=== PATIENT | male | born 1975 | race Two or more races ===

== ENCOUNTER 2020-05-28 09:46 | Emergency (ER) | payer OTHER ==
[2020-05-28 12:32] LABS: BLOOD UREA NITROGEN 14 mg/dL (7-20); CALCIUM 9.4 mg/dL (8.4-10.2); CARBON DIOXIDE 33 mmol/L (22-30); CHLORIDE 105 mmol/L (98-107); GLUCOSE 92 mg/dL (75-110); POTASSIUM 4.4 mmol/L (3.6-5.0)
[2020-05-28 12:38] LABS: ANION GAP 2 (5-19)
--- NOTE | 2020-05-28 13:24 | RADIOLOGY REPORT (SQ) ---
EXAM DESCRIPTION: MRI CERVICAL SPINE COMBO IMAGES COMPLETED DATE/TIME: 05/28/2020 1:02 pm REASON FOR STUDY: right arm weakness COMPARISON: None. TECHNIQUE: Sagittal and Axial imaging includes T1, T2, STIR and gradient echo sequences. T1 post phil olinium sequences. CONTRAST TYPE AND DOSE: 15 mL Prohance. RENAL FUNCTION: Not indicated. ACR Type II contrast agent associated with few, if any, unconfounded cases of NSF LIMITATIONS: None. FINDINGS: ALIGNMENT: Straightening of the lordotic curve. VERTEBRAE: Intact. BONE MARROW: Normal. No marrow replacement or reactive changes. DISCS: Desiccation multiple levels. HARDWARE: None in the spine. CORD AND BASE OF BRAIN: Subtle fusiform increased T2 signal in the cord at the level of C6-7. SOFT TISSUES: No soft tissue masses. C1-C2: No significant spinal stenosis. C2-C3: No significant stenosis. C3-C4: Mild spinal stenosis due to disc bulge and uncovertebral arthropathy. Moderate neural foramin al narrowing bilaterally. C4-C5: Mild spinal stenosis. Moderate neural foraminal narrowing bilaterally. C5-C6: Central small disc herniation. Mild-moderate spinal stenosis. Moderate neural foraminal narr owing bilaterally. C6-C7: Moderate size central disc herniation. Moderate spinal stenosis. Moderate neural foraminal n arrowing bilaterally. C7-T1: Large right lateral disc herniation contacting the lateral margin of the cord and the exiting C7 nerve root in the neural foramen. UPPER THORACIC: Incompletely imaged. No significant spinal stenosis or exit foraminal stenosis. ENHANCEMENT: No abnormal enhancement. OTHER: No other significant finding. IMPRESSION: 1. Varying degrees of spinal stenosis as described above. 2. Large right lateral disc herniation at C7-T1 contacting the lateral margin of the cord and the exi ting C7 nerve root. 3. Small syrinx C6-7. COMMENT: None. TECHNICAL DOCUMENTATION: JOB ID: [id number] 2010 [employer]- All Rights Reserved Reading location - IP/workstation name: [email or web address]
[2020-05-28 13:56] LABS: ABSOLUTE EOSINOPHILS # (AUTO) 0.1 10^3/uL (0.0-0.6); ABSOLUTE LYMPHOCYTES (AUTO) 1.5 10^3/uL (0.5-4.7); ABSOLUTE MONOCYTES (AUTO) 0.3 10^3/uL (0.1-1.4); ABSOLUTE NEUT (AUTO) 2.6 10^3/uL (1.7-8.2); BASOPHILS % (AUTO) 0.4 % (0-2); EOSINOPHILS % (AUTO) 1.5 % (0-6); HEMATOCRIT 43.3 % (37.9-51.0); LYMPHOCYTES % (AUTO) 33.9 % (13-45); MEAN CORPUSCULAR HEMOGLOBIN 30.6 pg (27.0-33.4); MEAN CORPUSCULAR HGB CONC 34.7 g/dL (32.0-36.0); MEAN CORPUSCULAR VOLUME 88 fl (80-97); MONOCYTES % (AUTO) 6.6 % (3-13); PLATELET COUNT 185 10^3/uL (150-450); RED BLOOD COUNT 4.91 10^6/uL (4.35-5.55); SEGMENTED NEUTROPHILS % (AUTO) 57.6 % (42-78); TOTAL CELLS COUNTED % (AUTO) 100 %; WHITE BLOOD COUNT 4.5 10^3/uL (4.0-10.5)
--- NOTE | 2020-05-28 14:25 | ER Document Report ---
ED Extremity Problem, Upper - General Chief Complaint: Shoulder Pain Stated Complaint: RIGHT SHOULDER/ARM PAIN Time Seen by Provider: 05/28/20 10:31 Mode of Arrival: Ambulatory Information source: Patient - HPI Notes: Patient presents complaining of right arm pain. He states since seems to originate in the right shoulder blade and radiate down his right arm. It is worse with movement and somewhat better with rest. It is sharp and fairly constant. Is moderate to severe. He also has abnormal sensation down in the distal part of the arm and hand. He states he has trouble with movements of the fingers as well as the hand and wrist. He states this all seemed to start ap proximately 2 to 3 weeks ago. He is not of any inciting injury or event. He denies any chest pain or neck pain. - Related Data Allergies/Adverse Reactions: No Known Allergies Allergy (Verified 05/28/20 10:03) Home Medications: flexeril Past Medical History - General Information source: Patient - Social History Smoking Status: Never Smoker Chew tobacco use (# tins/day): No Frequency of alcohol use: None Drug Abuse: None Family History: Reviewed & Not Pertinent Review of Systems - Review of Systems Constitutional: denies: Chills, Fever Cardiovascular: denies: Chest pain, Palpitations Respiratory: denies: Cough, Short of breath -: Yes All other systems reviewed and negative Physical Exam - Vital signs Vitals: Temp Pulse Resp BP Pulse Ox 97.5 F 66 18 115/79 98 05/28/20 09:53 05/28/20 09:53 05/28/20 09:53 05/28/20 09:53 05/28/20 09:53 Interpretation: Normal - General General appearance: Appears well, Alert - HEENT Head: Normocephalic, Atraumatic Eyes: Normal Pupils: PERRL - Respiratory Respiratory status: No respiratory distress Chest status: Nontender Breath sounds: Normal Chest palpation: Normal - Cardiovascular Rhythm: Regular Heart sounds: Normal auscultation Murmur: No - Abdominal Inspection: Normal Distension: No distension Bowel sounds: Normal Tenderness: Nontender Organomegaly: No organomegaly - Back Back: Normal, Nontender - Extremities General upper extremity: Normal inspection, Nontender, Normal color, Normal ROM, Normal temperature General lower extremity: Normal inspection, Nontender, Normal color, Normal ROM, Normal temperature, Normal weight bearing. No: Libra's sign - Neurological Neuro grossly intact: Yes Cognition: Normal Orientation: AAOx4 Ramsay Coma Scale Eye Opening: Spontaneous Ramsay Coma Scale Verbal: Oriented Akila Coma Scale Motor: Obeys Commands Akila Coma Scale Total: 15 Speech: Normal Motor strength normal: LUE, LLE, RLE Additional motor exam normals: Weakness, Other - Patient has decreased machine ii coremaker strength on the right. He has decreased strength for wrist extension and flexion on the right. He has an inability to spread his fingers apart on the right. He also has inability to extend his thumb on the right.. No: Equal machine ii coremaker Sensory: Normal - Psychological Associated symptoms: Normal affect, Normal mood - Skin Skin Temperature: Warm Skin Moisture: Dry Skin Color: Normal Course - Re-evaluation Re-evalutation: 05/28/20 14:21 Patient presents with radicular symptoms and an MRI that shows a large disc herniation. I did call and discuss this with the spinal surgeon, Dr. Gonzalez. He states the patient will need to be on steroids and pain medication and follow-up with a spinal surgeon. The patient lives in [place] and is going back for tomorrow. He states he would like to follow-up in [place] with the spinal surgeon. - Vital Signs Vital signs: Temp Pulse Resp BP Pulse Ox 97.5 F 66 18 115/79 98 05/28/20 09:53 05/28/20 09:53 05/28/20 09:53 05/28/20 09:53 05/28/20 09:53 - Laboratory Result Diagrams: 05/28/20 13:45 05/28/20 12:00 Laboratory results interpreted by me: 05/28/20 12:00 Carbon Dioxide 33 H Anion Gap 2 L - Diagnostic Test Radiology reviewed: Image reviewed, Reports reviewed Discharge - Discharge Clinical Impression: Cervical disc herniation Condition: Stable Disposition: HOME, SELF-CARE Instructions: Herniated Disc ([facility]) Additional Instructions: You have a large herniated disc at C7-T1. This is causing the symptoms you are having in your right arm and hand. You need to have this repaired within 3 months or you risk permanent injury to the right arm and hand. Please take the medicines as prescribed. Please do not take any hety-[id number]-[id number] anti- inflammatories such as Motrin or ibuprofen or Advil. Please call a spinal surgeon as soon as possible to arrange an evaluation for your possible surgery. Please take the disc of your MRI with you. Prescriptions: Methylprednisolone [Medrol Dosepack (4 mg/Tab) 21 Tab/Dosepak] 4 mg PO ASDIR PRN #21 tab.ds.pk PRN Reason: Oxycodone HCl/Acetaminophen [Percocet 7.5-325 mg Tablet] 1 each PO Q6 PRN 3 Days #12 tablet PRN Reason: For Pain Forms: Return to Work
[2020-05-28 15:04] VITALS: BP 117/73
== END 2020-05-28 14:54 | disposition home or self-care (01) ==
LOC: ER 09:46
DX: M50.23 Other cervical disc displacement, cervicothoracic region (principal); M48.02 Spinal stenosis, cervical region; G95.0 Syringomyelia and syringobulbia; Z79.899 Other long term (current) drug therapy
CPT/HCPCS: 99284; 36415; 85025; 80048; 72156; A9576